=== PATIENT | male | born 1950 | race Caucasian/White ===

== ENCOUNTER 2018-05-06 09:36 | Emergency (ER) | payer OTHER ==
[2018-05-06] MEDS: KETOROLAC 15 MG INJ IM (11:28)
== END 2018-05-06 11:37 | disposition home or self-care (01) ==
LOC: FTE 09:36
DX: S29.9XXA Unspecified injury of thorax, initial encounter (principal); I10 Essential (primary) hypertension; W22.8XXA Striking against or struck by other objects, initial encounter; Y92.9 Unspecified place or not applicable
CPT/HCPCS: 71100; 96372; 99284-25